=== PATIENT | female | born 1955 ===

== ENCOUNTER 2018-07-07 21:58 | Inpatient (IN) | payer OTHER ==
[~2018-07-07] VITALS: Ht 172.7 cm; Wt 130.0 kg
[2018-07-07 22:56] LABS: BASOPHILS # (AUTO) 0.01 x10^3/uL (0-0.1); BASOPHILS % (AUTO) 0 % (0-1); EOSINOPHILS # (AUTO) 0.01 x10^3/uL (0-0.4); EOSINOPHILS % (AUTO) 0 % (1-7); LYMPHOCYTES # (AUTO) 1.31 x10^3/uL (1-3.4); LYMPHOCYTES % (AUTO) 16 % (22-44); MD NO; MEAN CORPUSCULAR HEMOGLOBIN 32.5 pg (27.0-34.8); MEAN CORPUSCULAR HGB CONC 33.9 g/dL (32.4-35.8); MEAN CORPUSCULAR VOLUME 96.1 fL (80-100); MONOCYTES # (AUTO) 0.73 x10^3/uL (0.2-0.8); MONOCYTES % (AUTO) 9 % (2-9); NEUTROPHILS # (AUTO) 6.38 x10^3/uL (1.8-6.8); NEUTROPHILS % (AUTO) 76 % (42-75); PLATELET COUNT 236 x10^3/uL (130-400); RED BLOOD COUNT 5.34 x10^6/uL (3.82-5.3); RED CELL DISTRIBUTION WIDTH 12.8 % (9.6-15.2)
[2018-07-07] MEDS ORDERED: SODIUM CHLORIDE 0.9% 1,000ML IVBOLUS ONE ×3 (23:00→23:30)
[2018-07-07 23:06] LABS: O2 FLOW 0 L/min; PH, VENOUS 7.137 pH (7.320-7.420)
[2018-07-07 23:11] LABS: ALBUMIN 3.7 g/dL (3.4-5.0); ANION GAP 19 mmol/L (5-15); CALCIUM 11.1 mg/dL (8.5-10.1); CHLORIDE 98 mmol/L (98-107)
[2018-07-07 23:15] LABS: ACETONE, SERUM Large (80mg/dL) mg/dL (Negative); ALANINE AMINOTRANSFERASE 29 U/L (12-78); ALKALINE PHOSPHATASE 243 U/L (45-117); BILIRUBIN,TOTAL 1.2 mg/dL (0.2-1.0); CREATININE 1.32 mg/dL (0.55-1.02); TOTAL PROTEIN 8.3 g/dL (6.4-8.2)
[2018-07-07 23:22] LABS: MICROSCOPIC INDICATED
[2018-07-07] MEDS ORDERED: REGULAR INSULIN 62.5 UNITS in SODIUM CHLORIDE 0.9% 249.375 ML IV PRN ×2 (23:26→23:49)
[2018-07-07 23:42] LABS: CULTURE INDICATED? NO
[2018-07-08] MEDS ORDERED: ACETAMINOPHEN 325 MG TABLET PO PRN
[2018-07-08] MEDS ORDERED: ENOXAPARIN 40 MG/0.4 ML SQ SCH
[2018-07-08] MEDS ORDERED: POTASSIUM CHLORIDE 40 MEQ in SODIUM CHLORIDE 0.9% 500 ML IV ONE
[2018-07-08] MEDS ORDERED: SODIUM BICARB 8.4%, 50ML SYRINGE IVPB PRN
[2018-07-08] MEDS ORDERED: ONDANSETRON 2MG/ML, 2ML IVPush PRN
[2018-07-08 01:16] LABS: ANION GAP 18 mmol/L (5-15); CALCIUM 8.8 mg/dL (8.5-10.1); CHLORIDE 112 mmol/L (98-107); CREATININE 0.93 mg/dL (0.55-1.02)
[2018-07-08 01:27] LABS: HEMOGLOBIN A1C 14.2 % (4.2-6.3)
[2018-07-08] MEDS ORDERED: POTASSIUM PHOSPHATE 44 MEQ in SODIUM CHLORIDE 0.9% 500 ML IV ONE (02:00)
[2018-07-08] MEDS ORDERED: FAMOTIDINE 20 MG/2 ML IVPush ONE (02:30)
[2018-07-08 02:46] VITALS: BP 110/64
[2018-07-08] MEDS: NS + 20MEQ KCL 1,000 ML IV SCH ×2 (03:00→07:00)
[2018-07-08 03:20] LABS: ALANINE AMINOTRANSFERASE 25 U/L (12-78); ALBUMIN 3.1 g/dL (3.4-5.0); ANION GAP 16 mmol/L (5-15); CALCIUM 9.9 mg/dL (8.5-10.1); CHLORIDE 111 mmol/L (98-107); CREATININE 0.97 mg/dL (0.55-1.02)
[2018-07-08 03:23] LABS: ALKALINE PHOSPHATASE 188 U/L (45-117); BILIRUBIN,TOTAL 0.8 mg/dL (0.2-1.0)
[2018-07-08 04:00] VITALS: BP 97/62
[2018-07-08 04:28] LABS: O2 FLOW 0 L/min; PH, VENOUS 7.157 pH (7.320-7.420)
[2018-07-08 04:30] LABS: BASOPHILS # (AUTO) 0.02 x10^3/uL (0-0.1); BASOPHILS % (AUTO) 0 % (0-1); EOSINOPHILS # (AUTO) 0.03 x10^3/uL (0-0.4); EOSINOPHILS % (AUTO) 0 % (1-7); LYMPHOCYTES # (AUTO) 1.58 x10^3/uL (1-3.4); LYMPHOCYTES % (AUTO) 21 % (22-44); MD NO; MEAN CORPUSCULAR HEMOGLOBIN 32.9 pg (27.0-34.8); MEAN CORPUSCULAR HGB CONC 34.7 g/dL (32.4-35.8); MEAN CORPUSCULAR VOLUME 94.9 fL (80-100); MEAN PLATELET VOLUME 8.2 fL (7.4-10.4); MONOCYTES # (AUTO) 0.95 x10^3/uL (0.2-0.8); MONOCYTES % (AUTO) 12 % (2-9); NEUTROPHILS # (AUTO) 5.13 x10^3/uL (1.8-6.8); NEUTROPHILS % (AUTO) 67 % (42-75); PLATELET COUNT 166 x10^3/uL (130-400); RED BLOOD COUNT 4.55 x10^6/uL (3.82-5.3); RED CELL DISTRIBUTION WIDTH 12.8 % (9.6-15.2)
[2018-07-08 07:20] LABS: ANION GAP 10 mmol/L (5-15); CALCIUM 9.2 mg/dL (8.5-10.1); CHLORIDE 120 mmol/L (98-107); CREATININE 0.84 mg/dL (0.55-1.02)
[2018-07-08] MEDS: D5%-0.45% NACL 1,000 ML IV SCH ×4 (07:49→21:32)
[2018-07-08 09:58] LABS: ANION GAP 9 mmol/L (5-15); CALCIUM 9.1 mg/dL (8.5-10.1); CHLORIDE 120 mmol/L (98-107); CREATININE 0.79 mg/dL (0.55-1.02)
[2018-07-08] MEDS: REGULAR INSULIN 62.5 UNITS in SODIUM CHLORIDE 0.9% 249.375 ML IV PRN ×2 (13:07→20:56)
[2018-07-08 13:20] LABS: ANION GAP 10 mmol/L (5-15); CALCIUM 9.8 mg/dL (8.5-10.1); CHLORIDE 116 mmol/L (98-107); CREATININE 0.79 mg/dL (0.55-1.02)
[2018-07-08 19:14] LABS: ANION GAP 9 mmol/L (5-15); CALCIUM 9.3 mg/dL (8.5-10.1); CHLORIDE 115 mmol/L (98-107); CREATININE 0.59 mg/dL (0.55-1.02)
[2018-07-08] MEDS ORDERED: ONDANSETRON ODT 4 MG PO PRN (21:30)
[2018-07-09 01:17] LABS: ANION GAP 10 mmol/L (5-15); CALCIUM 9.2 mg/dL (8.5-10.1); CHLORIDE 114 mmol/L (98-107); CREATININE 0.55 mg/dL (0.55-1.02)
[2018-07-09 01:22] LABS: BASOPHILS # (AUTO) 0.03 x10^3/uL (0-0.1); BASOPHILS % (AUTO) 1 % (0-1); EOSINOPHILS # (AUTO) 0.12 x10^3/uL (0-0.4); EOSINOPHILS % (AUTO) 3 % (1-7); LYMPHOCYTES # (AUTO) 1.49 x10^3/uL (1-3.4); LYMPHOCYTES % (AUTO) 34 % (22-44); MD NO; MEAN CORPUSCULAR HEMOGLOBIN 32.8 pg (27.0-34.8); MEAN CORPUSCULAR HGB CONC 34.6 g/dL (32.4-35.8); MEAN CORPUSCULAR VOLUME 94.9 fL (80-100); MEAN PLATELET VOLUME 8.3 fL (7.4-10.4); MONOCYTES # (AUTO) 0.48 x10^3/uL (0.2-0.8); MONOCYTES % (AUTO) 11 % (2-9); NEUTROPHILS # (AUTO) 2.33 x10^3/uL (1.8-6.8); NEUTROPHILS % (AUTO) 52 % (42-75); PLATELET COUNT 131 x10^3/uL (130-400); RED BLOOD COUNT 4.01 x10^6/uL (3.82-5.3)
[2018-07-09 04:29] VITALS: BP 100/50
[2018-07-09] MEDS ORDERED: POTASSIUM PHOSPHATE 44 MEQ in SODIUM CHLORIDE 0.9% 500 ML IV ONE ×3 (04:30→08:30)
[2018-07-09] MEDS: REGULAR INSULIN 62.5 UNITS in SODIUM CHLORIDE 0.9% 249.375 ML IV PRN (05:55)
[2018-07-09 07:50] LABS: ANION GAP 7 mmol/L (5-15); CALCIUM 9.5 mg/dL (8.5-10.1); CHLORIDE 116 mmol/L (98-107)
[2018-07-09] MEDS ORDERED: DEXTROSE 50%, 50ML SYRINGE IVPush PRN (09:30)
[2018-07-09] MEDS ORDERED: PANTOPRAZOLE 40 MG IV IVPush SCH (09:30)
[2018-07-09] MEDS ORDERED: DEXTROSE 4 GM TAB.CHEW PO PRN (09:30)
[2018-07-09] MEDS ORDERED: GLUCAGON 1 MG IM PRN (09:30)
[2018-07-09] MEDS: INSULIN GLARGINE 100 UNITS/ML, PEN SQ-INSULIN SCH ×2 (10:21→17:39)
[2018-07-09] MEDS: INSULIN LISPRO 100 UNITS/ML, PEN SQ-INSULIN SCH ×4 (10:21→20:07)
[2018-07-09] MEDS: SODIUM CHLORIDE FLUSH 10ML SYR IVF SCH (20:42)
[2018-07-10] MEDS: INSULIN LISPRO 100 UNITS/ML, PEN SQ-INSULIN SCH ×6 (00:01→21:20)
[2018-07-10 04:00] VITALS: BP 94/48
[2018-07-10 07:30] LABS: MEAN CORPUSCULAR HEMOGLOBIN 32.5 pg (27.0-34.8); MEAN CORPUSCULAR HGB CONC 34.6 g/dL (32.4-35.8); MEAN CORPUSCULAR VOLUME 93.9 fL (80-100); MEAN PLATELET VOLUME 8.2 fL (7.4-10.4); PLATELET COUNT 126 x10^3/uL (130-400); RED BLOOD COUNT 4.02 x10^6/uL (3.82-5.3)
[2018-07-10 07:37] LABS: ALANINE AMINOTRANSFERASE 21 U/L (12-78); ALBUMIN 2.4 g/dL (3.4-5.0); ANION GAP 9 mmol/L (5-15); CALCIUM 8.6 mg/dL (8.5-10.1); CHLORIDE 115 mmol/L (98-107); CREATININE 0.41 mg/dL (0.55-1.02)
[2018-07-10 07:39] LABS: ALKALINE PHOSPHATASE 101 U/L (45-117); BILIRUBIN,TOTAL 1.2 mg/dL (0.2-1.0); TOTAL PROTEIN 5.2 g/dL (6.4-8.2)
[2018-07-10 07:43] LABS: BASOPHILS # (AUTO) 0.05 x10^3/uL (0-0.1); BASOPHILS % (AUTO) 1 % (0-1); EOSINOPHILS % (AUTO) 3 % (1-7); LYMPHOCYTES # (AUTO) 1.44 x10^3/uL (1-3.4); LYMPHOCYTES % (AUTO) 43 % (22-44); MD SCAN; MONOCYTES # (AUTO) 0.44 x10^3/uL (0.2-0.8); MONOCYTES % (AUTO) 13 % (2-9); NEUTROPHILS # (AUTO) 1.35 x10^3/uL (1.8-6.8); NEUTROPHILS % (AUTO) 40 % (42-75)
[2018-07-10] MEDS ORDERED: POTASSIUM PHOSPHATE 44 MEQ in SODIUM CHLORIDE 0.9% 500 ML IV ONE (08:30)
[2018-07-10] MEDS: INSULIN GLARGINE 100 UNITS/ML, PEN SQ-INSULIN SCH ×2 (08:34→21:20)
[2018-07-10] MEDS ORDERED: POTASSIUM CHLORIDE 20 MEQ TAB.ER.PRT PO ONE (09:00)
[2018-07-10] MEDS: PANTOPROZOLE 40MG TABLET PO SCH (09:25)
[2018-07-10] MEDS: SODIUM CHLORIDE FLUSH 10ML SYR IVF SCH ×2 (09:26→21:00)
[2018-07-10 12:20] VITALS: BP 134/86
[2018-07-10 19:55] VITALS: BP 122/72
[2018-07-11 00:55] VITALS: BP 126/77
[2018-07-11 05:21] LABS: CHLORIDE 113 mmol/L (98-107)
[2018-07-11 05:26] LABS: BASOPHILS # (AUTO) 0.03 x10^3/uL (0-0.1); BASOPHILS % (AUTO) 1 % (0-1); EOSINOPHILS # (AUTO) 0.14 x10^3/uL (0-0.4); EOSINOPHILS % (AUTO) 4 % (1-7); LYMPHOCYTES # (AUTO) 1.81 x10^3/uL (1-3.4); LYMPHOCYTES % (AUTO) 49 % (22-44); MD NO; MEAN CORPUSCULAR HEMOGLOBIN 32.7 pg (27.0-34.8); MEAN CORPUSCULAR HGB CONC 34.6 g/dL (32.4-35.8); MEAN CORPUSCULAR VOLUME 94.6 fL (80-100); MEAN PLATELET VOLUME 8.1 fL (7.4-10.4); MONOCYTES # (AUTO) 0.51 x10^3/uL (0.2-0.8); MONOCYTES % (AUTO) 14 % (2-9); NEUTROPHILS # (AUTO) 1.22 x10^3/uL (1.8-6.8); NEUTROPHILS % (AUTO) 33 % (42-75); PLATELET COUNT 121 x10^3/uL (130-400); RED BLOOD COUNT 4.09 x10^6/uL (3.82-5.3); RED CELL DISTRIBUTION WIDTH 13.5 % (9.6-15.2)
[2018-07-11 05:28] LABS: ALANINE AMINOTRANSFERASE 24 U/L (12-78); ALBUMIN 2.5 g/dL (3.4-5.0); ALKALINE PHOSPHATASE 117 U/L (45-117); ANION GAP 7 mmol/L (5-15); BILIRUBIN,TOTAL 1.1 mg/dL (0.2-1.0); CALCIUM 9.3 mg/dL (8.5-10.1); CREATININE 0.47 mg/dL (0.55-1.02); TOTAL PROTEIN 5.4 g/dL (6.4-8.2)
[2018-07-11] MEDS: PANTOPROZOLE 40MG TABLET PO SCH (06:20)
[2018-07-11 07:25] VITALS: BP 118/81
[2018-07-11] MEDS: INSULIN LISPRO 100 UNITS/ML, PEN SQ-INSULIN SCH ×4 (07:36→21:04)
[2018-07-11] MEDS: SODIUM CHLORIDE FLUSH 10ML SYR IVF SCH ×2 (09:00→21:05)
[2018-07-11] MEDS: INSULIN GLARGINE 100 UNITS/ML, PEN SQ-INSULIN SCH ×2 (10:01→21:04)
[2018-07-11] MEDS: LISINOPRIL 5 MG TABLET PO SCH (11:26)
[2018-07-11 11:45] VITALS: BP 138/80
[2018-07-11 19:04] VITALS: BP 130/90
[2018-07-12 01:21] VITALS: BP 111/76
[2018-07-12 05:52] LABS: ANION GAP 9 mmol/L (5-15); CALCIUM 9.8 mg/dL (8.5-10.1); CHLORIDE 109 mmol/L (98-107); CREATININE 0.51 mg/dL (0.55-1.02)
[2018-07-12] MEDS: PANTOPROZOLE 40MG TABLET PO SCH (06:26)
[2018-07-12 07:30] VITALS: BP 148/93
[2018-07-12] MEDS: LISINOPRIL 5 MG TABLET PO SCH (08:41)
[2018-07-12] MEDS: INSULIN LISPRO 100 UNITS/ML, PEN SQ-INSULIN SCH ×4 (08:42→21:37)
[2018-07-12] MEDS: SODIUM CHLORIDE FLUSH 10ML SYR IVF SCH ×2 (08:42→21:36)
[2018-07-12] MEDS: INSULIN GLARGINE 100 UNITS/ML, PEN SQ-INSULIN SCH ×2 (08:42→21:37)
[2018-07-12] MEDS ORDERED: INSULIN GLARGINE 100 UNITS/ML, PEN SQ-INSULIN SCH (09:00)
[2018-07-12 12:15] VITALS: BP 144/96
[2018-07-12 18:53] VITALS: BP 146/85
[2018-07-13] MEDS ORDERED: SODIUM CHLORIDE 0.45% 1,000 ML IV SCH (00:30)
[2018-07-13 01:01] VITALS: BP 152/78
[2018-07-13 05:42] LABS: BASOPHILS # (AUTO) 0.04 x10^3/uL (0-0.1); BASOPHILS % (AUTO) 1 % (0-1); EOSINOPHILS # (AUTO) 0.15 x10^3/uL (0-0.4); EOSINOPHILS % (AUTO) 3 % (1-7); INTERNATIONAL NORMALIZED RATIO 1.03 (0.93-1.1); LYMPHOCYTES # (AUTO) 1.66 x10^3/uL (1-3.4); LYMPHOCYTES % (AUTO) 38 % (22-44); MD NO; MEAN CORPUSCULAR HEMOGLOBIN 33.5 pg (27.0-34.8); MEAN CORPUSCULAR HGB CONC 35.2 g/dL (32.4-35.8); MEAN CORPUSCULAR VOLUME 95.1 fL (80-100); MEAN PLATELET VOLUME 8.3 fL (7.4-10.4); MONOCYTES # (AUTO) 0.69 x10^3/uL (0.2-0.8); MONOCYTES % (AUTO) 16 % (2-9); NEUTROPHILS # (AUTO) 1.85 x10^3/uL (1.8-6.8); NEUTROPHILS % (AUTO) 42 % (42-75); PLATELET COUNT 158 x10^3/uL (130-400); PROTHROMBIN TIME 10.9 Seconds (9.6-11.5); RED BLOOD COUNT 4.29 x10^6/uL (3.82-5.3); RED CELL DISTRIBUTION WIDTH 13.5 % (9.6-15.2)
[2018-07-13 05:48] LABS: ANION GAP 10 mmol/L (5-15); CALCIUM 9.7 mg/dL (8.5-10.1); CHLORIDE 106 mmol/L (98-107)
[2018-07-13 05:49] LABS: CREATININE 0.59 mg/dL (0.55-1.02)
[2018-07-13] MEDS: PANTOPROZOLE 40MG TABLET PO SCH (06:00)
[2018-07-13 06:52] VITALS: BP 131/82
[2018-07-13] MEDS: INSULIN LISPRO 100 UNITS/ML, PEN SQ-INSULIN SCH ×4 (07:00→19:52)
[2018-07-13] MEDS: INSULIN GLARGINE 100 UNITS/ML, PEN SQ-INSULIN SCH ×2 (07:20→19:52)
[2018-07-13] MEDS: LISINOPRIL 5 MG TABLET PO SCH (07:58)
[2018-07-13] MEDS ORDERED: POTASSIUM CHLORIDE 40 MEQ in SODIUM CHLORIDE 0.9% 500 ML IV ONE (09:00)
[2018-07-13] MEDS: SODIUM CHLORIDE FLUSH 10ML SYR IVF SCH ×2 (09:00→19:53)
[2018-07-13] MEDS ORDERED: LIDOCAINE-MPF 1%, 5ML ONE (12:15)
[2018-07-13] MEDS ORDERED: FLUMAZENIL 0.1 MG/1 ML, 5ML ONE (12:29)
[2018-07-13] MEDS ORDERED: FENTANYL PF 100 MCG/2ML ONE ×2 (12:29)
[2018-07-13] MEDS ORDERED: MIDAZOLAM 1 MG/ML, 5ML ONE (12:30)
[2018-07-13] MEDS ORDERED: NALOXONE 1 MG/ML, 2ML ONE (12:30)
[2018-07-13 12:41] VITALS: BP 141/84
[2018-07-13] MEDS ORDERED: POTASSIUM CHLORIDE 20 MEQ TAB.ER.PRT PO ONE (18:00)
[2018-07-13 20:10] VITALS: BP 144/83
[2018-07-14 00:04] VITALS: BP 134/68
[2018-07-14] MEDS: PANTOPROZOLE 40MG TABLET PO SCH (06:22)
[2018-07-14 06:59] VITALS: BP 147/72
[2018-07-14] MEDS: INSULIN GLARGINE 100 UNITS/ML, PEN SQ-INSULIN SCH (08:43)
[2018-07-14] MEDS: INSULIN LISPRO 100 UNITS/ML, PEN SQ-INSULIN SCH ×3 (08:44→16:35)
[2018-07-14] MEDS: LISINOPRIL 5 MG TABLET PO SCH (08:45)
[2018-07-14] MEDS: SODIUM CHLORIDE FLUSH 10ML SYR IVF SCH (09:00)
[2018-07-14 13:41] VITALS: BP 153/88
[2018-07-14] MEDS ORDERED: BLOO1EAC91 BC (15:26)
[2018-07-14] MEDS ORDERED: NEED-188 SC (15:26)
[2018-07-14] MEDS ORDERED: [UNRECOGNIZED DRUG - CODE] SC (15:26)
[2018-07-14] MEDS ORDERED: LISI-167 PO (15:26)
[2018-07-14] MEDS ORDERED: INSU100V8 SQ (15:26)
[2018-07-14 16:36] VITALS: BP 146/89
== END 2018-07-14 17:27 | disposition home or self-care (01) | DRG 637 ==
LOC: ED 23:44 → EDIP 23:51 → CCU 07-08 01:31 → 4NOR 07-10 12:09 → DCLOUNGE 07-14 17:10
PROVIDERS: ADMIT Internal Medicine; ATTEND Internal Medicine
PROC: B4131ZZ Fluoroscopy of Splenic Arteries using Low Osmolar Contrast (ICD-10-PCS; principal; 2018-07-13)
PROC: B4101ZZ Fluoroscopy of Abdominal Aorta using Low Osmolar Contrast (ICD-10-PCS; 2018-07-13)
DX: E10.10 Type 1 diabetes mellitus with ketoacidosis without coma (principal); G93.41 Metabolic encephalopathy; E87.1 Hypo-osmolality and hyponatremia; N13.2 Hydronephrosis with renal and ureteral calculous obstruction; N17.9 Acute kidney failure, unspecified; Z68.41 Body mass index [BMI] 40.0-44.9, adult; E66.01 Morbid (severe) obesity due to excess calories; E86.0 Dehydration; E87.5 Hyperkalemia; E10.65 Type 1 diabetes mellitus with hyperglycemia; M25.511 Pain in right shoulder; F17.200 Nicotine dependence, unspecified, uncomplicated; I71.4 Abdominal aortic aneurysm, without rupture; I72.8 Aneurysm of other specified arteries; J44.9 Chronic obstructive pulmonary disease, unspecified; K76.0 Fatty (change of) liver, not elsewhere classified; Z79.4 Long term (current) use of insulin; Z83.3 Family history of diabetes mellitus; Z90.81 Acquired absence of spleen; Z91.19 Patient's noncompliance with other medical treatment and regimen; Z88.7 Allergy status to serum and vaccine; Z79.899 Other long term (current) drug therapy
CPT/HCPCS: 36415; 73030; 99285; J3490; 70450; 71045; 74176; 75726; 76700; 80048; 80053; 81001; 82010; 82550; 82803; 82962; 83036; 83735; 84100; 85025; 85610; 85730; 87040; 87081; 93005; 93306; 96361; 96374; 99156; 99157; G0378; J1650; J1815; J2250; J3010; J3480; Q0162; C1751; C1760; C1769; C1894; C9113; J2310; J7030; J7040; J7050

== ENCOUNTER 2018-09-02 13:52 | Day surgery (SDC) | payer MEDICAID ==
[~2018-09-02] VITALS: Ht 172.7 cm; Wt 121.7 kg
[~2018-09-02 13:52] MED LIST: BLOO1EAC91 BC; EPHEDRINE 50 MG/ML, 1ML ONE; INSU100I13 SC; INSU100V8 SQ; LISI-167 PO; NEED-188 SC; ONDANSETRON 2MG/ML, 2ML ONE; PROPOFOL 10 MG/ML, 20ML ONE; VASOPRESSIN 20 UNIT/ML, 1ML ONE; [UNRECOGNIZED DRUG - CODE] SC
[2018-09-02] MEDS ORDERED: ACETAMINOPHEN 500 MG TABLET PO ONE (14:30)
[2018-09-02] MEDS ORDERED: GABAPENTIN 300 MG CAPSULE PO ONE (14:30)
[2018-09-02] MEDS ORDERED: LACTATED RINGERS 1,000 ML IV SCH (14:46)
[2018-09-02 14:51] VITALS: BP 145/94
[2018-09-02] MEDS ORDERED: FENTANYL PF 100 MCG/2ML ONE ×3 (16:22→18:08)
[2018-09-02] MEDS ORDERED: KETOROLAC 30 MG/1 ML IV PRN (19:00)
[2018-09-02] MEDS ORDERED: hydrALAzine 20 MG/ML, 1ML IV PRN (19:00)
[2018-09-02] MEDS ORDERED: HYDROmorphone 2 MG/ML, 1ML IVPush PRN (19:00)
[2018-09-02] MEDS ORDERED: DIPHENHYDRAMINE 50 MG/ML, 1ML IVPush PRN (19:00)
[2018-09-02] MEDS ORDERED: METOPROLOL 1 MG/ML, 5ML IV PRN (19:00)
[2018-09-02] MEDS ORDERED: PROMETHAZINE 25 MG/ML, 1ML IV PRN ×2 (19:00→19:30)
[2018-09-02] MEDS ORDERED: OXYcodone 5 MG/5 ML ORAL.SOL UDC PO PRN (19:00)
[2018-09-02] MEDS ORDERED: LABETALOL 5MG/ML, 20ML IV PRN (19:00)
[2018-09-02] MEDS ORDERED: PROCHLORPERAZINE 5 MG/ML, 2ML IV PRN (19:00)
[2018-09-02] MEDS ORDERED: MEPERIDINE/PF 25MG/0.5ML IVPush PRN (19:00)
[2018-09-02] MEDS ORDERED: FENTANYL PF 100 MCG/2ML IV PRN (19:00)
[2018-09-02] MEDS ORDERED: ONDANSETRON 2MG/ML, 2ML ONE (19:06)
[2018-09-02] MEDS ORDERED: ONDANSETRON 2MG/ML, 2ML IV PRN (19:30)
[2018-09-02] MEDS ORDERED: OMNIPAQUE 350 MG/ML, 50 ML BOTTLE ONE (20:04)
[2018-09-02] MEDS ORDERED: HYDROcodone/APAP 5/325 TABLET PO PRN (20:35)
[2018-09-02] MEDS ORDERED: HYDROcodone/APAP 5/325 TABLET ONE (20:39)
== END 2018-09-02 21:10 | disposition home or self-care (01) ==
LOC: OR 13:52 → 4NOR 20:05 → OR 21:10
PROVIDERS: ATTEND Urology
DX: N20.0 Calculus of kidney (principal); F41.9 Anxiety disorder, unspecified; E11.9 Type 2 diabetes mellitus without complications; I10 Essential (primary) hypertension; Z72.89 Other problems related to lifestyle; Z88.8 Allergy status to other drugs, medicaments and biological substances; Z88.6 Allergy status to analgesic agent
CPT/HCPCS: 52356; 74420; 82962; C1758; C1769; C2617; J2405; J2704; J3010; J7120; Q9967; G0378

== ENCOUNTER → 2020-07-05 | Outpatient (CLI) | payer MEDICAID ==
[~2020-07-05] MED LIST changes: -EPHEDRINE 50 MG/ML, 1ML ONE; -ONDANSETRON 2MG/ML, 2ML ONE; -PROPOFOL 10 MG/ML, 20ML ONE; -VASOPRESSIN 20 UNIT/ML, 1ML ONE
[2020-07-05 11:00] LABS: ALANINE AMINOTRANSFERASE 30 U/L (12-78); ANION GAP 7 mmol/L (5-15); BILIRUBIN,TOTAL 1.6 mg/dL (0.2-1.0); CALCIUM 10.3 mg/dL (8.5-10.1); CHLORIDE 109 mmol/L (98-107); CREATININE 1.28 mg/dL (0.55-1.02)
[2020-07-05 11:01] LABS: ALKALINE PHOSPHATASE 139 U/L (45-117); TOTAL PROTEIN 7.5 g/dL (6.4-8.2)
== END | disposition home or self-care (01) ==
LOC: STAR 08:05
PROVIDERS: ATTEND Surgery
DX: Z01.812 Encounter for preprocedural laboratory examination (principal); Z20.828 Contact with and (suspected) exposure to other viral communicable diseases
CPT/HCPCS: 36415; 80053; 87635; 93005

== ENCOUNTER 2020-07-10 06:28 | Day surgery (SDC) | payer MEDICAID ==
[~2020-07-10] VITALS: Ht 172.7 cm; Wt 107.0 kg
[2020-07-10] MEDS ORDERED: LACTATED RINGERS 1,000 ML IV SCH (07:06)
[2020-07-10] MEDS ORDERED: CHLORHEXIDINE 15 ML UDC MM STA (07:06)
[2020-07-10 07:07] VITALS: BP 140/90
[2020-07-10] MEDS ORDERED: CHLORHEXIDINE 15 ML UDC ONE (07:10)
[2020-07-10] MEDS ORDERED: SCOPOLAMINE 1MG PATCH TD ONE (08:05)
[2020-07-10] MEDS ORDERED: MIDAZOLAM 1 MG/ML, 2ML ONE (08:13)
[2020-07-10] MEDS ORDERED: FENTANYL PF 100 MCG/2ML ONE ×3 (08:13→10:37)
[2020-07-10] MEDS ORDERED: PROPOFOL 150 ML ONE (08:17)
[2020-07-10] MEDS ORDERED: FENTANYL PF 250 MCG/5ML ONE (09:02)
[2020-07-10] MEDS ORDERED: NEOSTIGMINE 1 MG/ML, 10ML ONE (09:17)
[2020-07-10] MEDS ORDERED: ONDANSETRON 2MG/ML, 2ML ONE (09:17)
[2020-07-10] MEDS ORDERED: SUCCINYLCHOLINE 20 MG/ML, 10ML ONE (09:17)
[2020-07-10] MEDS ORDERED: CEFAZOLIN 1,000 MG ONE (09:17)
[2020-07-10] MEDS ORDERED: DEXAMETHASONE 4 MG/ML, 1ML ONE (09:17)
[2020-07-10] MEDS ORDERED: ROCURONIUM 10MG/ML,5ML ONE (09:17)
[2020-07-10] MEDS ORDERED: GLYCOPYRROLATE 0.2MG/1ML, 5ML ONE (09:17)
[2020-07-10] MEDS ORDERED: PROPOFOL 10 MG/ML, 20ML ONE (09:17)
[2020-07-10] MEDS ORDERED: MEPERIDINE/PF 25MG/0.5ML IVPush PRN (09:30)
[2020-07-10] MEDS ORDERED: hydrALAzine 20 MG/ML, 1ML IV PRN (09:30)
[2020-07-10] MEDS ORDERED: ACETAMINOPHEN 325 MG TABLET PO PRN (09:30)
[2020-07-10] MEDS ORDERED: DIAZEPAM 5 MG/ML, 2ML IVPush PRN (09:30)
[2020-07-10] MEDS ORDERED: HYDROmorphone 2 MG/ML, 1ML IVPush PRN (09:30)
[2020-07-10] MEDS ORDERED: LABETALOL 5MG/ML, 20ML IV PRN (09:30)
[2020-07-10] MEDS ORDERED: PROMETHAZINE 25 MG/ML, 1ML IV PRN (09:30)
[2020-07-10] MEDS ORDERED: KETOROLAC 30 MG/1 ML IV PRN (09:30)
[2020-07-10] MEDS ORDERED: ALBUTEROL SULFATE 2.5 MG/3 ML NPPB PRN (09:30)
[2020-07-10 09:40] LABS: 10MIN %DROP IOPTH 86 %; 5MIN %DROP IOPTH 78 %; IOPTH BASELINE 146 pg/mL
[2020-07-10] MEDS: FENTANYL PF 100 MCG/2ML IV PRN ×4 (09:58→11:02)
[2020-07-10] MEDS ORDERED: ACETAMINOPHEN 650 MG/20.3 ML UDC ONE (10:37)
[2020-07-10] MEDS ORDERED: OXYcodone 5 MG/5 ML ORAL.SOL UDC ONE (10:38)
[2020-07-10] MEDS: OXYcodone 5 MG/5 ML ORAL.SOL UDC PO PRN ×2 (10:40→12:25)
== END 2020-07-10 13:05 | disposition home or self-care (01) ==
LOC: OUT 06:28
PROVIDERS: ATTEND Surgery
DX: E21.0 Primary hyperparathyroidism (principal); E11.9 Type 2 diabetes mellitus without complications; E03.9 Hypothyroidism, unspecified; I10 Essential (primary) hypertension; E78.5 Hyperlipidemia, unspecified; M85.80 Other specified disorders of bone density and structure, unspecified site; F17.210 Nicotine dependence, cigarettes, uncomplicated; E66.9 Obesity, unspecified; Z88.1 Allergy status to other antibiotic agents; Z88.5 Allergy status to narcotic agent; Z98.890 Other specified postprocedural states; Z79.82 Long term (current) use of aspirin; Z79.899 Other long term (current) drug therapy; Z79.84 Long term (current) use of oral hypoglycemic drugs; Z68.35 Body mass index [BMI] 35.0-35.9, adult
CPT/HCPCS: 60500; 82962; 83970; 88305; 88331; C1760; J0330; J0690; J1100; J2250; J2405; J2704; J2710; J3010; J7120